=== PATIENT | male | born 1960 | race Caucasian/White ===

== ENCOUNTER → 2016-09-26 | Outpatient (CLI) | payer BC | LOC: FIMAGING 13:32 | PROVIDERS: ATTEND Family Medicine | DX: M23.332 Other meniscus derangements, other medial meniscus, left knee (principal); M22.42 Chondromalacia patellae, left knee; M76.892 Other specified enthesopathies of left lower limb, excluding foot; M25.462 Effusion, left knee ==

== ENCOUNTER 2018-06-03 01:29 | Emergency (ER) | payer BC, OTHER ==
[2018-06-03 01:37] VITALS: BP 153/98
[2018-06-03] MEDS ORDERED: HYDROCOD/APAP 5/325 PREPACK#6 BTL TAKEHOME ONE (02:29)
--- NOTE | 2018-06-03 02:29 | EDPHY ---
H & P Stated Complaint: low L back pain since february much worse tonight Time Seen by Provider: 06/03/18 02:05 HPI/ROS: HPI The patient presents with left-sided lower back pain which has been present since when he was getting out of a car. He felt a twinge of pain at that time and has had pain intermittently ever since. He has been treated with chiropractic D, physical therapy, massage, course of steroids. He had a plain film which was unremarkable. His tonight, the pain became worse and is intermittent coming in waves as high as 8/10 on the pain scale. The pain begins in his left lower lumbar region and radiates to his thigh. He does not have any numbness or tingling. He does not have any weakness of his leg. He does not have any bowel or bladder changes.. REVIEW OF SYSTEMS 10 systems were reviewed and negative with the exception of the elements mentioned in the history of present illness. PMHx: Lumbar back pain as above, history of appendectomy Soc Hx: Housed PHYSICAL General Appearance: Alert, no distress Eyes: Pupils equal and round no pallor or injection ENT, Mouth: Mucous membranes moist Respiratory: There are no retractions, lungs are clear to auscultation Cardiovascular: Regular rate and rhythm Gastrointestinal: Abdomen is soft and non-tender, no masses, bowel sounds normal Neurological: A&O, 5/5 strength in his lower extremities which is symmetric Skin: Warm and dry, no rashes Musculoskeletal: Back shows tenderness of his left paraspinal region at approximately L3 through L5, there is full range of motion of his spine Extremities: symmetrical, full range of motion Psychiatric: Patient is oriented X 3, there is no agitation Source: Patient Exam Limitations: No limitations - Personal History Current Tetanus/Diphtheria Vaccine: Yes Current Tetanus Diphtheria and Acellular Pertussis (TDAP): Yes - Medical/Surgical History Hx Asthma: No Hx Chronic Respiratory Disease: No Hx Diabetes: No Hx Cardiac Disease: No Hx Renal Disease: No Hx Cirrhosis: No Hx Alcoholism: No Hx HIV/AIDS: No Hx Splenectomy or Spleen Trauma: No Other PMH: appendectomy - Social History Smoking Status: Never smoked Constitutional: Initial Vital Signs Temperature (C) 36.3 C 06/03/18 01:33 Heart Rate 89 06/03/18 01:33 Respiratory Rate 20 06/03/18 01:33 Blood Pressure 153/98 H 06/03/18 01:33 O2 Sat (%) 98 06/03/18 01:33 O2 Delivery Mode Room Air Allergies/Adverse Reactions: No Known Allergies Allergy (Unverified 06/03/18 01:30) Home Medications: Medication Instructions Recorded Miscellaneous Medical Supply [NO 1 ea MISC AD 03/10/13 HOME MEDS] Hydrocodone/APAP 5/325 [Eola 1 - 2 tab PO Q6H PRN #15 tab 06/03/18 5/325 (*)] Medical Decision Making Differential Diagnosis: 57-year-old male who is healthy with left-sided lumbar back pain for the last several months which became worse in the last 1 day. On exam, he is neurologically intact. On history there are no red flag features. I feel he is likely suffering from a lumbar radiculopathy and I have explained this to him. He has had benefit with Eola in the past. I will prescribe him a short course of this. I have recommended that he take NSAIDs in addition to this. I have referred him to the on-call neurosurgeon for further testing including possible MRI. I doubt cauda equina or epidural abscess based on his symptoms. - Data Points Medications Given: Discontinued Medications Hydrocodone Bitart/Acetaminophen (Eola 5/325mg Prepack#6) 1 btl TAKETIMOTHYE EDNOW ONE Stop: 06/03/18 02:30 Last Admin: 06/03/18 02:51 Dose: 1 btl Departure - Departure Disposition: Home, Routine, Self-Care Clinical Impression: Lower back pain Qualifiers: Chronicity: acute Back pain laterality: left Sciatica presence: without sciatica Qualified Code(s): M54.5 - Low back pain Condition: Good Instructions: Hydrocodone/Acetaminophen (By mouth), Low Back Strain (ED), Lower Back Exercises (ED) Additional Instructions: I recommend you take ibuprofen 400 mg every 6 hr or naproxen 500 mg every 12 hr. If you take this an you still have back pain, then I recommend you take the prescription pain medication. I recommend you call tomorrow to arrange for a consultation with our neurosurgeons or physiatrists for your pain. I have listed their numbers below. I suspect you may need an MRI because this pain has lasted for so long. Referrals: Dylan Adam MD [Primary Care Provider] - As per Instructions Jigar Suggs MD [Medical Doctor] - As per Instructions Herminio Parish MD [Medical Doctor] - As per Instructions Prescriptions: Hydrocodone/APAP 5/325 [Eola 5/325 (*)] 1 - 2 tab PO Q6H PRN #15 tab PRN Reason: Pain, Breakthrough
== END 2018-06-03 02:55 | disposition home or self-care (01) ==
DX: M54.5 Low back pain (principal); Z79.52 Long term (current) use of systemic steroids; Z90.49 Acquired absence of other specified parts of digestive tract